=== PATIENT | female | born 1990 | race Two or more races ===

== ENCOUNTER 2017-10-14 15:23 | Emergency (ER) | payer MEDICAID ==
[~2017-10-14] VITALS: Ht 160 cm; Wt 77.1 kg
[~2017-10-14 15:23] MED LIST: ALBU18
[2017-10-14 16:57] VITALS: BP 133/88
== END 2017-10-14 17:58 | disposition home or self-care (01) ==
LOC: ER 15:24
DX: R07.89 Other chest pain (principal); J45.909 Unspecified asthma, uncomplicated
CPT/HCPCS: 71046; 93005